=== PATIENT | male | born 1995 | race Caucasian/White ===

== ENCOUNTER 2017-02-23 02:21 | Emergency (ER) | payer OTHER ==
[~2017-02-23] VITALS: Ht 175.3 cm; Wt 98.7 kg
[~2017-02-23 02:21] MED LIST: Vicodin,Norco 5/325 PO
[2017-02-23 03:21] LABS: HEMATOCRIT 38.8 % (38.0-50.0); MCH 30.5 PG (29.0-34.0); MCHC 33.5 G/DL (30.0-36.0); MCV 91.1 FL (86-99); MEAN PLAT.VOLUME 10.2 uM^3 (9.0-12.4); PLATELET COUNT 256 K/uL (156-360); RBC DIS.WIDTH-CV 12.9 % (11.8-14.6); RBC DIS.WIDTH-SD 42.5 % (39-53); RED BLOOD COUNT 4.26 M/uL (4.00-5.50)
[2017-02-23 03:37] LABS: CHLORIDE 104 mEq/L (99-109); POTASSIUM 3.6 mEq/L (3.7-5.4); SODIUM 139 mEq/L (136-147)
[2017-02-23 03:38] LABS: GLUCOSE 87 mg/dL (70-99)
[2017-02-23 03:40] LABS: ANION GAP 10 MEQ/L (2-14)
[2017-02-23 03:42] LABS: GFR ESTIMATE (CALCULATED) > 59 mL/min/
[2017-02-23 03:43] LABS: UREA NITROGEN (BUN) 26 mg/dL (9-23)
[2017-02-23 04:21] VITALS: BP 127/91
== END 2017-02-23 04:22 | disposition home or self-care (01) ==
LOC: EME 02:21
PROVIDERS: Physician Assistant
DX: R42 Dizziness and giddiness (principal); F51.4 Sleep terrors [night terrors]; F17.200 Nicotine dependence, unspecified, uncomplicated
CPT/HCPCS: 80048; 85027; 93005; 99281; 99284